=== PATIENT | male | born 1935 | race Caucasian/White ===

== ENCOUNTER 2022-10-27 15:21 | Inpatient (IN) | payer MEDICARE, BC ==
[~2022-10-27] VITALS: Ht 185.4 cm; Wt 89.2 kg
[2022-10-27 17:00] VITALS: BP 117/75
[2022-10-27 17:14] LABS: BASO # 0.1 10^3/uL (0.0-0.2); BASO % 0.8 % (0.0-1.0); EOS % 0.5 % (0.0-3.0); HEMATOCRIT 34.9 % (42.0-52.0); HEMOGLOBIN 10.7 g/dl (13.5-17.5); LYMPH % 13.7 % (24.0-44.0); MEAN CORPUSCULAR HEMOGLOBIN 29.2 pg (27.0-33.0); MEAN CORPUSCULAR HGB CONC 30.7 g/dl (32.0-36.5); MEAN CORPUSCULAR VOLUME 95.1 fl (80.0-96.0); MONO # 1.1 10^3/uL (0.0-0.8); NEUTROPHILS # 5.1 10^3/uL (1.5-8.5); NEUTROPHILS % 69.2 % (36.0-66.0); PLATELET COUNT, AUTOMATED 200 10^3/uL (150-450); RED BLOOD COUNT 3.67 10^6/uL (4.30-6.10); WHITE BLOOD COUNT 7.4 10^3/uL (4.0-10.0)
[2022-10-27 17:28] LABS: INR 0.98; PROTHROMBIN TIME 13.2 SECONDS (12.5-14.5)
[2022-10-27 17:29] LABS: PARTIAL THROMBOPLASTIN TIME 25.2 SECONDS (24.8-34.2)
[2022-10-27] MEDS ORDERED: MIRALAX *UNIT DOSE* 17GM PACKET PO PRN (17:35)
[2022-10-27 17:43] LABS: MAGNESIUM LEVEL 1.8 MG/DL (1.8-2.4)
[2022-10-27 17:45] LABS: ALBUMIN 2.7 G/DL (3.2-5.2); BILIRUBIN,TOTAL 0.4 MG/DL (0.3-1.2); CALCIUM LEVEL 8.2 MG/DL (8.3-10.6); CPK CREATINE PHOSPHOKINASE 67 U/L (46-171); CREATININE FOR GFR 5.28 MG/DL (0.70-1.30); POTASSIUM SERUM 4.1 MMOL/L (3.5-5.1); TOTAL PROTEIN 5.9 G/DL (5.7-8.2)
[2022-10-27 17:47] LABS: CK-MB VALUE MASS < 1.0 NG/ML (<3.6); MB/CK RELATIVE INDEX 1.49 (< OR =4)
[2022-10-27 17:50] LABS: THYROID STIMULATING HORMONE 2.453 uIU/ML (0.55-4.78); THYROXINE (T4) 6.8 UG/DL (4.5-10.9)
[2022-10-27 17:51] LABS: FREE THYROXINE INDEX 2.7 % (1.4-3.8); T UPTAKE 40.1 % (22.5-37.0)
[2022-10-27] MEDS: LIDOCAINE 5% (LIDODERM) PATCH TD SCH (18:50)
[2022-10-27] MEDS: oxyCODONE 5MG TAB PO PRN (18:51)
[2022-10-27] MEDS ORDERED: POTA-151 PO (20:37)
[2022-10-27] MEDS ORDERED: ATOR1TAB21 PO (20:37)
[2022-10-27] MEDS ORDERED: METO1TAB87 PO (20:37)
[2022-10-27] MEDS ORDERED: PRED5TA PO (20:37)
[2022-10-27] MEDS ORDERED: THERTAB52 PO (20:37)
[2022-10-27] MEDS ORDERED: FURO80TA2 PO (20:37)
[2022-10-27] MEDS ORDERED: HOME MED LIST COMPLETE! XX SCH (20:40)
[2022-10-27 21:00] VITALS: BP 124/75
[2022-10-27] MEDS: METOPROLOL TART 25 MG TABLET PO SCH (21:00)
[2022-10-27] MEDS: DICLOFENAC EPOLAMINE 1.3% PATCH TOP SCH (21:54)
[2022-10-28] VITALS (12 sets, daily range): BP systolic 114–126; BP diastolic 44–65
[2022-10-28] MEDS ORDERED: HEPARIN SOD (PORCINE) 5000UNITS/ML 1ML VIAL/SYRINGE PD ONE (06:00)
[2022-10-28 08:22] LABS: BASO % 0.3 % (0.0-1.0); EOS % 0.6 % (0.0-3.0); HEMATOCRIT 27.5 % (42.0-52.0); LYMPH # 0.7 10^3/uL (1.5-5.0); LYMPH % 11.8 % (24.0-44.0); MEAN CORPUSCULAR HEMOGLOBIN 29.3 pg (27.0-33.0); MEAN CORPUSCULAR HGB CONC 31.3 g/dl (32.0-36.5); MEAN CORPUSCULAR VOLUME 93.5 fl (80.0-96.0); MONO # 1.3 10^3/uL (0.0-0.8); MONO % 21.6 % (2.0-8.0); NEUTROPHILS % 65.2 % (36.0-66.0); PLATELET COUNT, AUTOMATED 154 10^3/uL (150-450); RED BLOOD COUNT 2.94 10^6/uL (4.30-6.10); WHITE BLOOD COUNT 6.2 10^3/uL (4.0-10.0)
[2022-10-28 08:23] LABS: HEMOGLOBIN 8.6 g/dl (13.5-17.5)
[2022-10-28] MEDS ORDERED: SUGAMMADEX SODIUM 500 MG/5 ML VIAL (BRIDION) As Ordered ONE (08:28)
[2022-10-28] MEDS ORDERED: LIDOCAINE 2% 100MG/5ML SDV (FOR ANES.) As Ordered ONE (08:28)
[2022-10-28] MEDS ORDERED: ROCURONIUM BROMIDE 50MG/5ML VIAL As Ordered ONE (08:28)
[2022-10-28] MEDS ORDERED: propofoL 200 MG/20 ML VIAL As Ordered ONE (08:28)
[2022-10-28] MEDS ORDERED: ONDANSETRON 4MG 2ML VIAL As Ordered ONE (08:29)
[2022-10-28 08:41] LABS: ALBUMIN 2.3 G/DL (3.2-5.2); CALCIUM LEVEL 7.7 MG/DL (8.3-10.6); CREATININE FOR GFR 5.25 MG/DL (0.70-1.30); GLOMERULAR FILTRATION RATE 11.1 (>35); PHOSPHORUS LEVEL 4.2 MG/DL (2.4-5.1)
[2022-10-28] MEDS: ATORVASTATIN 20 MG TAB PO SCH (08:50)
[2022-10-28] MEDS: METOPROLOL TART 25 MG TABLET PO SCH ×2 (08:54→21:20)
[2022-10-28] MEDS ORDERED: FUROSEMIDE 80 MG TAB PO SCH (09:00)
[2022-10-28] MEDS: LIDOCAINE 5% (LIDODERM) PATCH TD SCH (09:00)
[2022-10-28] MEDS: DICLOFENAC EPOLAMINE 1.3% PATCH TOP SCH ×2 (09:00→21:19)
[2022-10-28] MEDS ORDERED: VANCOMYCIN 1000MG/20ML VIAL As Ordered ONE (10:02)
[2022-10-28] MEDS ORDERED: TRANEXAMIC ACID 100 MG/ML 10ML VIAL As Ordered ONE (10:02)
[2022-10-28] MEDS ORDERED: ceFAZolin 2 GM/D5W 50 ML IV BAG As Ordered ONE (10:03)
[2022-10-28] MEDS ORDERED: fentaNYL 100 MCG/2 ML INJECTION As Ordered ONE (10:26)
[2022-10-28] MEDS ORDERED: PHENYLEPHRINE 10MG/ML 1ML VIAL As Ordered ONE (10:51)
[2022-10-28] MEDS ORDERED: propofoL 500 MG/50 ML VIAL As Ordered ONE (11:15)
[2022-10-28] MEDS ORDERED: ACETAMINOPHEN 1000MG 100ML IV BAG As Ordered ONE (11:32)
[2022-10-28] MEDS ORDERED: oxyCODONE 5MG TAB PO PRN (12:45)
[2022-10-28] MEDS ORDERED: ONDANSETRON 4MG 2ML VIAL IV PRN (12:45)
[2022-10-28] MEDS ORDERED: HYDROMORPHONE HCL 0.5 MG/ 0.5 ML SYRINGE IV PRN (12:45)
[2022-10-28] MEDS ORDERED: fentaNYL 100 MCG/2 ML INJECTION IV PRN (12:45)
[2022-10-28] MEDS: MULTIVITAMINS/MINERALS THERAP 1 TAB PO SCH (14:11)
[2022-10-28] MEDS: predniSONE 2.5 MG TAB PO SCH (14:11)
[2022-10-28] MEDS: oxyCODONE 5MG TAB PO PRN (18:21)
[2022-10-28] MEDS: ceFAZolin SOD 1 GM in D5W MINI-BAG PLUS 50 ML IV SCH (18:21)
[2022-10-28 20:16] LABS: APPEARANCE, URINE CLEAR (CLEAR); BACTERIA, URINE AUTO NEGATIVE (NEGATIVE); BILIRUBIN, URINE AUTO NEGATIVE (NEGATIVE); BLOOD, URINE BLOOD 2+ (NEGATIVE); COLOR, URINE YELLOW (YELLOW); GLUCOSE, URINE (UA) AUTO NEGATIVE (NEGATIVE); KETONE, URINE AUTO NEGATIVE (NEGATIVE); LEUKOCYTE ESTERASE, URINE AUTO TRACE (NEGATIVE); NITRITE, URINE AUTO NEGATIVE (NEGATIVE); PROTEIN, URINE AUTO 1+ mg/dL (NEGATIVE); RBC, URINE AUTO 8 /HPF (0-3); SPECIFIC GRAVITY URINE AUTO 1.012 (1.002-1.035); SQUAMOUS EPITHELIAL CELL UR AU 0 /HPF (0-6); UROBILINOGEN, URINE AUTO 0.2 mg/dL (0.0-2.0); WBC, URINE AUTO 6 /HPF (0-3)
[2022-10-28] MEDS: TAMSULOSIN 0.4 MG CAP PO SCH (21:15)
[2022-10-29 02:00] VITALS: BP 115/56
[2022-10-29] MEDS: ceFAZolin SOD 1 GM in D5W MINI-BAG PLUS 50 ML IV SCH ×2 (03:33→11:13)
[2022-10-29] MEDS: oxyCODONE 5MG TAB PO PRN ×2 (04:57→11:13)
[2022-10-29 05:50] VITALS: BP 116/45
[2022-10-29] MEDS ORDERED: HEPARIN SOD (PORCINE) 5000UNITS/ML 1ML VIAL/SYRINGE PD ONE (06:00)
[2022-10-29 06:17] LABS: BASO % 0.1 % (0.0-1.0); EOS % 0.1 % (0.0-3.0); HEMATOCRIT 24.7 % (42.0-52.0); HEMOGLOBIN 7.8 g/dl (13.5-17.5); LYMPH # 0.7 10^3/uL (1.5-5.0); MEAN CORPUSCULAR HEMOGLOBIN 29.4 pg (27.0-33.0); MEAN CORPUSCULAR HGB CONC 31.6 g/dl (32.0-36.5); MEAN CORPUSCULAR VOLUME 93.2 fl (80.0-96.0); MONO # 1.5 10^3/uL (0.0-0.8); MONO % 17.8 % (2.0-8.0); NEUTROPHILS # 6.2 10^3/uL (1.5-8.5); NEUTROPHILS % 73.3 % (36.0-66.0); PLATELET COUNT, AUTOMATED 113 10^3/uL (150-450); RED BLOOD COUNT 2.65 10^6/uL (4.30-6.10); WHITE BLOOD COUNT 8.4 10^3/uL (4.0-10.0)
[2022-10-29 06:42] LABS: ALBUMIN 1.8 G/DL (3.2-5.2); CALCIUM LEVEL 7.2 MG/DL (8.3-10.6); CREATININE FOR GFR 5.18 MG/DL (0.70-1.30); GLOMERULAR FILTRATION RATE 11.2 (>35); PHOSPHORUS LEVEL 4.2 MG/DL (2.4-5.1); POTASSIUM SERUM 3.9 MMOL/L (3.5-5.1)
[2022-10-29] MEDS: DICLOFENAC EPOLAMINE 1.3% PATCH TOP SCH (07:37)
[2022-10-29] MEDS: predniSONE 2.5 MG TAB PO SCH (07:38)
[2022-10-29] MEDS: MULTIVITAMINS/MINERALS THERAP 1 TAB PO SCH (07:38)
[2022-10-29] MEDS: ATORVASTATIN 20 MG TAB PO SCH (07:39)
[2022-10-29] MEDS: METOPROLOL TART 25 MG TABLET PO SCH ×2 (07:40→22:26)
[2022-10-29] MEDS: LIDOCAINE 5% (LIDODERM) PATCH TD SCH (09:06)
[2022-10-29] MEDS: FUROSEMIDE 80 MG TAB PO SCH ×2 (11:13→17:26)
[2022-10-29 12:40] LABS: HEMATOCRIT 25.3 % (42.0-52.0); HEMOGLOBIN 7.9 g/dl (13.5-17.5); MEAN CORPUSCULAR HGB CONC 31.2 g/dl (32.0-36.5); PLATELET COUNT, AUTOMATED 108 10^3/uL (150-450); RED BLOOD COUNT 2.72 10^6/uL (4.30-6.10); WHITE BLOOD COUNT 9.5 10^3/uL (4.0-10.0)
[2022-10-29] MEDS: ENOXAPARIN 30MG/0.3ML SYRINGE (J1650 PER 10MG) SC SCH (13:00)
[2022-10-29 13:15] LABS: PERCENT SATURATION 3.2 % (19.7-50.0)
[2022-10-29 14:00] VITALS: BP 110/56
[2022-10-29] MEDS ORDERED: FERRIC CARBOXYMALTOSE INJ 750 MG, VIAL MATE ADAPTER 1 EACH in NS 250 ML IV ONE (18:00)
[2022-10-29 22:00] VITALS: BP 119/60
[2022-10-29] MEDS ORDERED: HEPARIN SOD (PORCINE) 5000UNITS/ML 1ML VIAL/SYRINGE IP ONE (22:00)
[2022-10-29] MEDS: TAMSULOSIN 0.4 MG CAP PO SCH (22:26)
[2022-10-30] VITALS (9 sets, daily range): BP systolic 106–127; BP diastolic 53–69
[2022-10-30] MEDS: oxyCODONE 5MG TAB PO PRN ×3 (00:30→16:40)
[2022-10-30] MEDS: DICLOFENAC EPOLAMINE 1.3% PATCH TOP SCH ×3 (01:29→20:06)
[2022-10-30 06:46] LABS: BASO % 0.3 % (0.0-1.0); EOS % 0.3 % (0.0-3.0); HEMATOCRIT 24.3 % (42.0-52.0); HEMOGLOBIN 7.4 g/dl (13.5-17.5); LYMPH # 0.8 10^3/uL (1.5-5.0); LYMPH % 12.3 % (24.0-44.0); MEAN CORPUSCULAR HEMOGLOBIN 28.8 pg (27.0-33.0); MEAN CORPUSCULAR HGB CONC 30.5 g/dl (32.0-36.5); MEAN CORPUSCULAR VOLUME 94.6 fl (80.0-96.0); MONO # 1.4 10^3/uL (0.0-0.8); MONO % 21.4 % (2.0-8.0); NEUTROPHILS # 4.4 10^3/uL (1.5-8.5); NEUTROPHILS % 65.1 % (36.0-66.0); PLATELET COUNT, AUTOMATED 106 10^3/uL (150-450); RED BLOOD COUNT 2.57 10^6/uL (4.30-6.10); WHITE BLOOD COUNT 6.7 10^3/uL (4.0-10.0)
[2022-10-30 07:11] LABS: ALBUMIN 1.6 G/DL (3.2-5.2); CALCIUM LEVEL 7.3 MG/DL (8.3-10.6); CREATININE FOR GFR 5.25 MG/DL (0.70-1.30); GLOMERULAR FILTRATION RATE 11.1 (>35); PHOSPHORUS LEVEL 5.9 MG/DL (2.4-5.1); POTASSIUM SERUM 3.8 MMOL/L (3.5-5.1)
[2022-10-30] MEDS: MULTIVITAMINS/MINERALS THERAP 1 TAB PO SCH (09:04)
[2022-10-30] MEDS: LIDOCAINE 5% (LIDODERM) PATCH TD SCH (09:04)
[2022-10-30] MEDS: FUROSEMIDE 80 MG TAB PO SCH ×2 (09:04→16:39)
[2022-10-30] MEDS: METOPROLOL TART 25 MG TABLET PO SCH ×2 (09:04→20:05)
[2022-10-30] MEDS: ATORVASTATIN 20 MG TAB PO SCH (09:04)
[2022-10-30] MEDS: ENOXAPARIN 30MG/0.3ML SYRINGE (J1650 PER 10MG) SC SCH (09:05)
[2022-10-30] MEDS: predniSONE 2.5 MG TAB PO SCH (09:05)
[2022-10-30] MEDS: SENNA 8.6 MG TAB (SENOKOT) PO SCH (11:28)
[2022-10-30] MEDS: MIRALAX *UNIT DOSE* 17GM PACKET PO SCH (11:28)
[2022-10-30] MEDS: DARBEPOETIN 100MCG/0.5ML *NON-DIALYSIS* SYRINGE SC SCH (11:29)
[2022-10-30] MEDS: ACETAMINOPHEN 325 MG TAB PO PRN (14:26)
[2022-10-30] MEDS ORDERED: VANCOMYCIN HCL IV SCH (16:20)
[2022-10-30] MEDS ORDERED: FLUID PLACE HOLDER IV SCH (16:20)
[2022-10-30] MEDS ORDERED: VANCOMYCIN INTERMITTENT/PULSE DOSING BY CLINICAL PHARMACIST PER DOSING PROTOCOL XX SCH (18:15)
[2022-10-30 18:58] LABS: HEMATOCRIT 25.9 % (42.0-52.0); HEMOGLOBIN 8.3 g/dl (13.5-17.5); MEAN CORPUSCULAR HEMOGLOBIN 29.3 pg (27.0-33.0); MEAN CORPUSCULAR VOLUME 91.5 fl (80.0-96.0); PLATELET COUNT, AUTOMATED 110 10^3/uL (150-450); RED BLOOD COUNT 2.83 10^6/uL (4.30-6.10); WHITE BLOOD COUNT 6.7 10^3/uL (4.0-10.0)
[2022-10-30] MEDS ORDERED: VANCOMYCIN HCL 500 MG in D5W MINI-BAG PLUS 100 ML IV ONE (19:00)
[2022-10-30] MEDS ORDERED: VANCOMYCIN HCL 750 MG, VIAL MATE ADAPTER 1 EACH in D5W 250 ML IV ONE (20:00)
[2022-10-30] MEDS: TAMSULOSIN 0.4 MG CAP PO SCH (20:04)
[2022-10-30] MEDS: cefTRIAXone SOD 1 GM in D5W MINI-BAG PLUS 50 ML IV SCH (21:32)
[2022-10-31] MEDS: HEPARIN SOD (PORCINE) 5000UNITS/ML 1ML VIAL/SYRINGE SQ SCH ×4 (05:13→21:19)
[2022-10-31 06:00] VITALS: BP 126/53
[2022-10-31 06:09] LABS: BASO % 0.4 % (0.0-1.0); EOS # 0.1 10^3/uL (0.0-0.5); EOS % 1.4 % (0.0-3.0); HEMATOCRIT 24.6 % (42.0-52.0); HEMOGLOBIN 7.8 g/dl (13.5-17.5); LYMPH # 0.8 10^3/uL (1.5-5.0); LYMPH % 14.6 % (24.0-44.0); MEAN CORPUSCULAR HEMOGLOBIN 29.7 pg (27.0-33.0); MEAN CORPUSCULAR HGB CONC 31.7 g/dl (32.0-36.5); MEAN CORPUSCULAR VOLUME 93.5 fl (80.0-96.0); MONO # 1.1 10^3/uL (0.0-0.8); MONO % 20.9 % (2.0-8.0); NEUTROPHILS # 3.2 10^3/uL (1.5-8.5); NEUTROPHILS % 62.1 % (36.0-66.0); PLATELET COUNT, AUTOMATED 111 10^3/uL (150-450); RED BLOOD COUNT 2.63 10^6/uL (4.30-6.10); WHITE BLOOD COUNT 5.1 10^3/uL (4.0-10.0)
[2022-10-31 06:40] LABS: VANCOMYCIN RANDOM 12.9 UG/ML
[2022-10-31 06:41] LABS: ALBUMIN 1.4 G/DL (3.2-5.2); CALCIUM LEVEL 7.3 MG/DL (8.3-10.6); CREATININE FOR GFR 5.3 MG/DL (0.70-1.30); PHOSPHORUS LEVEL 6.3 MG/DL (2.4-5.1); POTASSIUM SERUM 3.8 MMOL/L (3.5-5.1)
[2022-10-31] MEDS: MIRALAX *UNIT DOSE* 17GM PACKET PO SCH (09:00)
[2022-10-31] MEDS: predniSONE 2.5 MG TAB PO SCH (09:00)
[2022-10-31] MEDS: SENNA 8.6 MG TAB (SENOKOT) PO SCH (09:00)
[2022-10-31] MEDS: FUROSEMIDE 80 MG TAB PO SCH ×2 (09:00→17:34)
[2022-10-31] MEDS: MULTIVITAMINS/MINERALS THERAP 1 TAB PO SCH (09:00)
[2022-10-31] MEDS: DICLOFENAC EPOLAMINE 1.3% PATCH TOP SCH ×2 (09:00→21:19)
[2022-10-31] MEDS: ATORVASTATIN 20 MG TAB PO SCH (09:00)
[2022-10-31] MEDS: LIDOCAINE 5% (LIDODERM) PATCH TD SCH (09:00)
[2022-10-31] MEDS: METOPROLOL TART 25 MG TABLET PO SCH ×2 (09:00→21:20)
[2022-10-31] MEDS ORDERED: VANCOMYCIN HCL 500 MG in D5W MINI-BAG PLUS 100 ML IV ONE (10:00)
[2022-10-31 14:00] VITALS: BP 117/63
[2022-10-31] MEDS: ACETAMINOPHEN 325 MG TAB PO PRN (17:33)
[2022-10-31 17:34] VITALS: BP 135/58
[2022-10-31 17:45] LABS: HEMATOCRIT 25.1 % (42.0-52.0); HEMOGLOBIN 8.2 g/dl (13.5-17.5); MEAN CORPUSCULAR HEMOGLOBIN 30.1 pg (27.0-33.0); MEAN CORPUSCULAR HGB CONC 32.7 g/dl (32.0-36.5); MEAN CORPUSCULAR VOLUME 92.3 fl (80.0-96.0); PLATELET COUNT, AUTOMATED 137 10^3/uL (150-450); RED BLOOD COUNT 2.72 10^6/uL (4.30-6.10)
[2022-10-31] MEDS: cefTRIAXone SOD 1 GM in D5W MINI-BAG PLUS 50 ML IV SCH (21:17)
[2022-10-31] MEDS: TAMSULOSIN 0.4 MG CAP PO SCH (21:19)
[2022-10-31 22:00] VITALS: BP 102/56
[2022-11-01] VITALS (11 sets, daily range): BP systolic 78–156; BP diastolic 42–71
[2022-11-01] MEDS: HEPARIN SOD (PORCINE) 5000UNITS/ML 1ML VIAL/SYRINGE SQ SCH ×3 (05:13→21:53)
[2022-11-01 08:05] LABS: HEMATOCRIT 23.2 % (42.0-52.0); HEMOGLOBIN 7.3 g/dl (13.5-17.5); MEAN CORPUSCULAR HEMOGLOBIN 29.2 pg (27.0-33.0); MEAN CORPUSCULAR HGB CONC 31.5 g/dl (32.0-36.5); MEAN CORPUSCULAR VOLUME 92.8 fl (80.0-96.0); PLATELET COUNT, AUTOMATED 143 10^3/uL (150-450); WHITE BLOOD COUNT 3.8 10^3/uL (4.0-10.0)
[2022-11-01 08:13] LABS: VANCOMYCIN RANDOM 13.9 UG/ML
[2022-11-01 08:17] LABS: ALBUMIN 1.4 G/DL (3.2-5.2); ALKALINE PHOSPHATASE 60 U/L (46-116); ALT/SGPT < 9 U/L (7.0-40); AST/SGOT 38 U/L (<34); BILIRUBIN,TOTAL 0.3 MG/DL (0.3-1.2); BLOOD UREA NITROGEN 65 MG/DL (9-23); CALCIUM LEVEL 7.2 MG/DL (8.3-10.6); CARBON DIOXIDE LEVEL 32 MMOL/L (20-31); CHLORIDE LEVEL 98 MMOL/L (98-107); CREATININE FOR GFR 5.37 MG/DL (0.70-1.30); GLOMERULAR FILTRATION RATE 10.8 (>35); GLUCOSE, FASTING 107 MG/DL (74-106); PHOSPHORUS LEVEL 6.5 MG/DL (2.4-5.1); POTASSIUM SERUM 3.6 MMOL/L (3.5-5.1); SODIUM LEVEL 138 MMOL/L (136-145); TOTAL PROTEIN 4.3 G/DL (5.7-8.2)
[2022-11-01] MEDS: LIDOCAINE 5% (LIDODERM) PATCH TD SCH (08:59)
[2022-11-01] MEDS: MIRALAX *UNIT DOSE* 17GM PACKET PO SCH (09:03)
[2022-11-01] MEDS: SENNA 8.6 MG TAB (SENOKOT) PO SCH (09:04)
[2022-11-01] MEDS: predniSONE 2.5 MG TAB PO SCH (09:04)
[2022-11-01] MEDS: ATORVASTATIN 20 MG TAB PO SCH (09:05)
[2022-11-01] MEDS: MULTIVITAMINS/MINERALS THERAP 1 TAB PO SCH (09:05)
[2022-11-01] MEDS: FUROSEMIDE 80 MG TAB PO SCH ×2 (09:18→18:08)
[2022-11-01] MEDS: METOPROLOL TART 25 MG TABLET PO SCH (09:18)
[2022-11-01] MEDS ORDERED: VANCOMYCIN HCL 500 MG in D5W MINI-BAG PLUS 100 ML IV ONE (10:00)
[2022-11-01] MEDS: DICLOFENAC EPOLAMINE 1.3% PATCH TOP SCH ×2 (10:15→21:53)
[2022-11-01] MEDS: METOPROLOL TART 12.5 MG PER 1/2 TAB PO SCH (21:52)
[2022-11-01] MEDS: cefTRIAXone SOD 1 GM in D5W MINI-BAG PLUS 50 ML IV SCH (21:52)
[2022-11-01] MEDS: TAMSULOSIN 0.4 MG CAP PO SCH (21:53)
[2022-11-02] MEDS: HEPARIN SOD (PORCINE) 5000UNITS/ML 1ML VIAL/SYRINGE SQ SCH ×3 (05:32→21:51)
[2022-11-02 06:00] VITALS: BP_SYST 115; BP_SYST 138; BP_SYST 143; BP_DIAS 58; BP_DIAS 60; BP_DIAS 70
[2022-11-02 06:18] LABS: HEMATOCRIT 29.1 % (42.0-52.0); MEAN CORPUSCULAR HEMOGLOBIN 29.6 pg (27.0-33.0); MEAN CORPUSCULAR VOLUME 89.8 fl (80.0-96.0); PLATELET COUNT, AUTOMATED 163 10^3/uL (150-450); RED BLOOD COUNT 3.24 10^6/uL (4.30-6.10); WHITE BLOOD COUNT 4.2 10^3/uL (4.0-10.0)
[2022-11-02 06:29] LABS: HEMOGLOBIN 9.6 g/dl (13.5-17.5)
[2022-11-02 06:40] LABS: VANCOMYCIN RANDOM 16.3 UG/ML
[2022-11-02 06:55] LABS: ALBUMIN 1.5 G/DL (3.2-5.2); ALKALINE PHOSPHATASE 73 U/L (46-116); ALT/SGPT < 9 U/L (7.0-40); AST/SGOT 36 U/L (<34); BILIRUBIN,TOTAL 0.6 MG/DL (0.3-1.2); BLOOD UREA NITROGEN 64 MG/DL (9-23); CALCIUM LEVEL 7.4 MG/DL (8.3-10.6); CARBON DIOXIDE LEVEL 29 MMOL/L (20-31); CHLORIDE LEVEL 98 MMOL/L (98-107); CREATININE FOR GFR 4.95 MG/DL (0.70-1.30); GLOMERULAR FILTRATION RATE 11.9 (>35); GLUCOSE, FASTING 103 MG/DL (74-106); PHOSPHORUS LEVEL 5.2 MG/DL (2.4-5.1); POTASSIUM SERUM 3.4 MMOL/L (3.5-5.1); SODIUM LEVEL 137 MMOL/L (136-145); TOTAL PROTEIN 4.5 G/DL (5.7-8.2)
[2022-11-02] MEDS ORDERED: POTASSIUM CHLORIDE 10MEQ SR TABLET PO ONE ×2 (07:00→07:55)
[2022-11-02] MEDS: METOPROLOL TART 12.5 MG PER 1/2 TAB PO SCH ×2 (09:00→21:55)
[2022-11-02] MEDS: ATORVASTATIN 20 MG TAB PO SCH (09:34)
[2022-11-02] MEDS: DOCUSATE SODIUM 100MG CAPSULE PO SCH ×2 (09:34→21:55)
[2022-11-02] MEDS: predniSONE 2.5 MG TAB PO SCH (09:34)
[2022-11-02] MEDS: MULTIVITAMINS/MINERALS THERAP 1 TAB PO SCH (09:34)
[2022-11-02] MEDS: LIDOCAINE 5% (LIDODERM) PATCH TD SCH (09:36)
[2022-11-02] MEDS: BISACODYL 10MG SUPP PR SCH ×2 (09:36→21:00)
[2022-11-02] MEDS: FUROSEMIDE 80 MG TAB PO SCH ×2 (09:36→17:31)
[2022-11-02] MEDS: MIRALAX *UNIT DOSE* 17GM PACKET PO SCH (09:36)
[2022-11-02] MEDS ORDERED: HEPARIN SOD (PORCINE) 5000UNITS/ML 1ML VIAL/SYRINGE PD ONE ×2 (10:00→11:00)
[2022-11-02 14:00] VITALS: BP 135/56
[2022-11-02] MEDS: DICLOFENAC EPOLAMINE 1.3% PATCH TOP SCH ×2 (14:51→21:51)
[2022-11-02] MEDS: SENNA 8.6 MG TAB (SENOKOT) PO SCH (21:52)
[2022-11-02] MEDS: cefTRIAXone SOD 1 GM in D5W MINI-BAG PLUS 50 ML IV SCH (21:55)
[2022-11-02] MEDS: TAMSULOSIN 0.4 MG CAP PO SCH (21:55)
[2022-11-02 22:00] VITALS: BP 136/64
[2022-11-03] MEDS: HEPARIN SOD (PORCINE) 5000UNITS/ML 1ML VIAL/SYRINGE SQ SCH ×3 (05:28→22:44)
[2022-11-03 06:14] LABS: HEMATOCRIT 30.7 % (42.0-52.0); HEMOGLOBIN 9.8 g/dl (13.5-17.5); MEAN CORPUSCULAR HGB CONC 31.9 g/dl (32.0-36.5); MEAN CORPUSCULAR VOLUME 90.8 fl (80.0-96.0); PLATELET COUNT, AUTOMATED 203 10^3/uL (150-450); RED BLOOD COUNT 3.38 10^6/uL (4.30-6.10); WHITE BLOOD COUNT 4.4 10^3/uL (4.0-10.0)
[2022-11-03 06:33] LABS: ALBUMIN 1.5 G/DL (3.2-5.2); ALKALINE PHOSPHATASE 77 U/L (46-116); ALT/SGPT < 9 U/L (7.0-40); AST/SGOT 35 U/L (<34); BILIRUBIN,TOTAL 0.4 MG/DL (0.3-1.2); BLOOD UREA NITROGEN 61 MG/DL (9-23); CALCIUM LEVEL 7.6 MG/DL (8.3-10.6); CARBON DIOXIDE LEVEL 29 MMOL/L (20-31); CHLORIDE LEVEL 100 MMOL/L (98-107); CREATININE FOR GFR 4.74 MG/DL (0.70-1.30); GLOMERULAR FILTRATION RATE 12.5 (>35); GLUCOSE, FASTING 101 MG/DL (74-106); POTASSIUM SERUM 3.5 MMOL/L (3.5-5.1); SODIUM LEVEL 139 MMOL/L (136-145); TOTAL PROTEIN 4.5 G/DL (5.7-8.2)
[2022-11-03 06:45] VITALS: BP 137/69
[2022-11-03] MEDS ORDERED: POTASSIUM CHLORIDE 10MEQ SR TABLET PO ONE (08:00)
[2022-11-03] MEDS: LIDOCAINE 5% (LIDODERM) PATCH TD SCH (08:23)
[2022-11-03] MEDS: MIRALAX *UNIT DOSE* 17GM PACKET PO SCH (08:23)
[2022-11-03] MEDS: DICLOFENAC EPOLAMINE 1.3% PATCH TOP SCH ×2 (08:24→22:38)
[2022-11-03] MEDS: METOPROLOL TART 12.5 MG PER 1/2 TAB PO SCH ×2 (08:24→22:40)
[2022-11-03] MEDS: ATORVASTATIN 20 MG TAB PO SCH (08:24)
[2022-11-03] MEDS: FUROSEMIDE 80 MG TAB PO SCH ×2 (08:25→17:35)
[2022-11-03] MEDS: predniSONE 2.5 MG TAB PO SCH (08:25)
[2022-11-03] MEDS: DOCUSATE SODIUM 100MG CAPSULE PO SCH ×2 (08:25→21:00)
[2022-11-03] MEDS: MULTIVITAMINS/MINERALS THERAP 1 TAB PO SCH (08:25)
[2022-11-03] MEDS: BISACODYL 10MG SUPP PR SCH ×2 (09:00→21:00)
[2022-11-03 14:00] VITALS: BP 122/68
[2022-11-03] MEDS: CEFUROXIME 500 MG TAB PO SCH (17:36)
[2022-11-03 20:00] VITALS: BP 120/74
[2022-11-03] MEDS: SENNA 8.6 MG TAB (SENOKOT) PO SCH (21:00)
[2022-11-03] MEDS: TAMSULOSIN 0.4 MG CAP PO SCH (22:41)
[2022-11-03] MEDS: oxyCODONE 5MG TAB PO PRN (22:42)
[2022-11-04] MEDS: HEPARIN SOD (PORCINE) 5000UNITS/ML 1ML VIAL/SYRINGE SQ SCH ×3 (05:13→20:15)
[2022-11-04 06:00] VITALS: BP 124/78
[2022-11-04 06:03] LABS: HEMATOCRIT 34.4 % (42.0-52.0); HEMOGLOBIN 10.8 g/dl (13.5-17.5); MEAN CORPUSCULAR HEMOGLOBIN 29.1 pg (27.0-33.0); MEAN CORPUSCULAR HGB CONC 31.4 g/dl (32.0-36.5); MEAN CORPUSCULAR VOLUME 92.7 fl (80.0-96.0); PLATELET COUNT, AUTOMATED 258 10^3/uL (150-450); RED BLOOD COUNT 3.71 10^6/uL (4.30-6.10); WHITE BLOOD COUNT 5.5 10^3/uL (4.0-10.0)
[2022-11-04 06:42] LABS: ALBUMIN 1.6 G/DL (3.2-5.2); BILIRUBIN,TOTAL 0.5 MG/DL (0.3-1.2); CALCIUM LEVEL 7.9 MG/DL (8.3-10.6); CREATININE FOR GFR 4.58 MG/DL (0.70-1.30); POTASSIUM SERUM 3.8 MMOL/L (3.5-5.1); TOTAL PROTEIN 4.9 G/DL (5.7-8.2)
[2022-11-04] MEDS: MULTIVITAMINS/MINERALS THERAP 1 TAB PO SCH (09:59)
[2022-11-04] MEDS: ATORVASTATIN 20 MG TAB PO SCH (09:59)
[2022-11-04] MEDS: DICLOFENAC EPOLAMINE 1.3% PATCH TOP SCH ×2 (10:00→20:14)
[2022-11-04] MEDS: DOCUSATE SODIUM 100MG CAPSULE PO SCH ×2 (10:00→20:15)
[2022-11-04] MEDS ORDERED: POTASSIUM CHLORIDE 10MEQ SR TABLET PO ONE (10:00)
[2022-11-04] MEDS: FUROSEMIDE 80 MG TAB PO SCH ×2 (10:00→17:24)
[2022-11-04] MEDS: predniSONE 2.5 MG TAB PO SCH (10:01)
[2022-11-04] MEDS: MIRALAX *UNIT DOSE* 17GM PACKET PO SCH (10:01)
[2022-11-04] MEDS: LIDOCAINE 5% (LIDODERM) PATCH TD SCH (10:01)
[2022-11-04] MEDS: BISACODYL 10MG SUPP PR SCH ×2 (10:01→20:15)
[2022-11-04] MEDS: METOPROLOL TART 12.5 MG PER 1/2 TAB PO SCH ×2 (10:02→20:15)
[2022-11-04] MEDS: oxyCODONE 5MG TAB PO PRN (10:41)
[2022-11-04 14:00] VITALS: BP 105/58
[2022-11-04] MEDS: CEFUROXIME 500 MG TAB PO SCH (17:23)
[2022-11-04 20:00] VITALS: BP 120/74
[2022-11-04] MEDS: TAMSULOSIN 0.4 MG CAP PO SCH (20:14)
[2022-11-04] MEDS: SENNA 8.6 MG TAB (SENOKOT) PO SCH (20:15)
[2022-11-05] VITALS (10 sets, daily range): BP systolic 96–138; BP diastolic 60–76
[2022-11-05] MEDS: HEPARIN SOD (PORCINE) 5000UNITS/ML 1ML VIAL/SYRINGE SQ SCH ×3 (05:52→21:48)
[2022-11-05 06:24] LABS: HEMATOCRIT 33.8 % (42.0-52.0); HEMOGLOBIN 10.6 g/dl (13.5-17.5); MEAN CORPUSCULAR HEMOGLOBIN 29.1 pg (27.0-33.0); MEAN CORPUSCULAR HGB CONC 31.4 g/dl (32.0-36.5); MEAN CORPUSCULAR VOLUME 92.9 fl (80.0-96.0); PLATELET COUNT, AUTOMATED 298 10^3/uL (150-450); RED BLOOD COUNT 3.64 10^6/uL (4.30-6.10); WHITE BLOOD COUNT 6.2 10^3/uL (4.0-10.0)
[2022-11-05 07:35] LABS: ALBUMIN 1.6 G/DL (3.2-5.2); BILIRUBIN,TOTAL 0.5 MG/DL (0.3-1.2); CALCIUM LEVEL 7.9 MG/DL (8.3-10.6); CREATININE FOR GFR 4.95 MG/DL (0.70-1.30); GLOMERULAR FILTRATION RATE 11.9 (>35); POTASSIUM SERUM 3.9 MMOL/L (3.5-5.1); TOTAL PROTEIN 4.9 G/DL (5.7-8.2)
[2022-11-05] MEDS: BISACODYL 10MG SUPP PR SCH ×2 (09:00→21:00)
[2022-11-05] MEDS: METOPROLOL TART 12.5 MG PER 1/2 TAB PO SCH ×2 (09:00→21:48)
[2022-11-05] MEDS: DICLOFENAC EPOLAMINE 1.3% PATCH TOP SCH ×2 (09:03→21:48)
[2022-11-05] MEDS: LIDOCAINE 5% (LIDODERM) PATCH TD SCH (09:04)
[2022-11-05] MEDS: DOCUSATE SODIUM 100MG CAPSULE PO SCH ×2 (09:06→21:47)
[2022-11-05] MEDS: ATORVASTATIN 20 MG TAB PO SCH (09:06)
[2022-11-05] MEDS: FUROSEMIDE 80 MG TAB PO SCH ×2 (09:06→17:22)
[2022-11-05] MEDS: MULTIVITAMINS/MINERALS THERAP 1 TAB PO SCH (09:07)
[2022-11-05] MEDS: predniSONE 2.5 MG TAB PO SCH (09:07)
[2022-11-05] MEDS: MIRALAX *UNIT DOSE* 17GM PACKET PO SCH (09:07)
[2022-11-05] MEDS: MIDODRINE 5 MG TAB PO SCH ×2 (12:19→15:33)
[2022-11-05] MEDS: CEFUROXIME 500 MG TAB PO SCH (17:22)
[2022-11-05] MEDS: SENNA 8.6 MG TAB (SENOKOT) PO SCH (21:47)
[2022-11-05] MEDS: TAMSULOSIN 0.4 MG CAP PO SCH (21:47)
[2022-11-06] VITALS (8 sets, daily range): BP systolic 107–165; BP diastolic 56–75
[2022-11-06] MEDS: oxyCODONE 5MG TAB PO PRN ×2 (00:02→09:14)
[2022-11-06 06:28] LABS: HEMATOCRIT 31.2 % (42.0-52.0); HEMOGLOBIN 9.8 g/dl (13.5-17.5); MEAN CORPUSCULAR HEMOGLOBIN 29.2 pg (27.0-33.0); MEAN CORPUSCULAR HGB CONC 31.4 g/dl (32.0-36.5); MEAN CORPUSCULAR VOLUME 92.9 fl (80.0-96.0); PLATELET COUNT, AUTOMATED 303 10^3/uL (150-450); RED BLOOD COUNT 3.36 10^6/uL (4.30-6.10); WHITE BLOOD COUNT 5.5 10^3/uL (4.0-10.0)
[2022-11-06 07:02] LABS: ALBUMIN 2.4 G/DL (3.2-5.2); BILIRUBIN,TOTAL 0.6 MG/DL (0.3-1.2); CALCIUM LEVEL 8.2 MG/DL (8.3-10.6); CREATININE FOR GFR 5.42 MG/DL (0.70-1.30); GLOMERULAR FILTRATION RATE 10.7 (>35); POTASSIUM SERUM 3.9 MMOL/L (3.5-5.1); TOTAL PROTEIN 5.3 G/DL (5.7-8.2)
[2022-11-06] MEDS: HEPARIN SOD (PORCINE) 5000UNITS/ML 1ML VIAL/SYRINGE SQ SCH ×2 (07:07→15:18)
[2022-11-06] MEDS: MIDODRINE 5 MG TAB PO SCH ×2 (08:00→12:05)
[2022-11-06] MEDS: BISACODYL 10MG SUPP PR SCH (09:00)
[2022-11-06] MEDS: FUROSEMIDE 80 MG TAB PO SCH (09:13)
[2022-11-06] MEDS: MULTIVITAMINS/MINERALS THERAP 1 TAB PO SCH (09:13)
[2022-11-06] MEDS: ATORVASTATIN 20 MG TAB PO SCH (09:14)
[2022-11-06] MEDS: DOCUSATE SODIUM 100MG CAPSULE PO SCH (09:14)
[2022-11-06] MEDS: METOPROLOL TART 12.5 MG PER 1/2 TAB PO SCH (09:15)
[2022-11-06] MEDS: predniSONE 2.5 MG TAB PO SCH (09:15)
[2022-11-06] MEDS: MIRALAX *UNIT DOSE* 17GM PACKET PO SCH (09:15)
[2022-11-06] MEDS: DICLOFENAC EPOLAMINE 1.3% PATCH TOP SCH (09:16)
[2022-11-06] MEDS: LIDOCAINE 5% (LIDODERM) PATCH TD SCH (09:16)
[2022-11-06] MEDS: DARBEPOETIN 100MCG/0.5ML *NON-DIALYSIS* SYRINGE SC SCH (10:19)
[2022-11-06] MEDS ORDERED: BISA10SU PR (12:42)
[2022-11-06] MEDS ORDERED: SENN18TA PO (12:42)
[2022-11-06] MEDS ORDERED: METO1TAB87 PO (12:42)
[2022-11-06] MEDS ORDERED: DICL1PAT6 TOP (12:42)
[2022-11-06] MEDS ORDERED: COLA100C5 PO (12:42)
[2022-11-06] MEDS ORDERED: ACET32TAB PO (12:42)
[2022-11-06] MEDS ORDERED: MIRA1POW3 PO (12:42)
[2022-11-06] MEDS ORDERED: OXYC-517 PO ×2 (12:42)
[2022-11-06] MEDS ORDERED: FLOM0.4C39 PO (12:42)
[2022-11-06] MEDS ORDERED: MIDO5TA PO (12:42)
[2022-11-06] MEDS ORDERED: VITMTA PO (12:42)
[2022-11-06] MEDS ORDERED: LIDO5TD TD (12:42)
[2022-11-06] MEDS ORDERED: HEPA500023 SQ (12:42)
== END 2022-11-06 16:39 | DRG 521 ==
LOC: M MSPAV 16:45
PROVIDERS: ADMIT General Practice; ATTEND Internal Medicine
PROC: 3E1M39Z Irrigation of Peritoneal Cavity using Dialysate, Percutaneous Approach (ICD-10-PCS; 2022-10-28)
PROC: 30233N1 Transfusion of Nonautologous Red Blood Cells into Peripheral Vein, Percutaneous Approach (ICD-10-PCS; 2022-10-28)
PROC: 0SRS0JZ Replacement of Left Hip Joint, Femoral Surface with Synthetic Substitute, Open Approach (ICD-10-PCS; principal; 2022-10-28 09:30)
PROC: 30233J1 Transfusion of Nonautologous Serum Albumin into Peripheral Vein, Percutaneous Approach (ICD-10-PCS; 2022-11-05)
DX: S72.142A Displaced intertrochanteric fracture of left femur, initial encounter for closed fracture (principal); N18.6 End stage renal disease; J18.9 Pneumonia, unspecified organism; I12.0 Hypertensive chronic kidney disease with stage 5 chronic kidney disease or end stage renal disease; D62 Acute posthemorrhagic anemia; W00.0XXA Fall on same level due to ice and snow, initial encounter; Y92.008 Other place in unspecified non-institutional (private) residence as the place of occurrence of the external cause; Y93.89 Activity, other specified; Y99.8 Other external cause status; S86.011D Strain of right Achilles tendon, subsequent encounter; E78.5 Hyperlipidemia, unspecified; M35.3 Polymyalgia rheumatica; I95.1 Orthostatic hypotension; K59.00 Constipation, unspecified; E87.6 Hypokalemia; R33.9 Retention of urine, unspecified; I71.21 Aneurysm of the ascending aorta, without rupture; E87.5 Hyperkalemia; E87.70 Fluid overload, unspecified; I49.3 Ventricular premature depolarization; I49.8 Other specified cardiac arrhythmias; Z99.2 Dependence on renal dialysis; Z85.828 Personal history of other malignant neoplasm of skin; Z79.899 Other long term (current) drug therapy; Z87.891 Personal history of nicotine dependence; Z98.49 Cataract extraction status, unspecified eye; Z79.52 Long term (current) use of systemic steroids